=== PATIENT | female | born 1980 | race Caucasian/White ===

== ENCOUNTER 2019-09-15 18:30 | Inpatient (IN) | payer BC ==
[2019-09-15] MEDS ORDERED: METOCLOPRAMIDE 5 MG/ML 2 ML VIAL IVP STA (18:51)
[2019-09-15] MEDS ORDERED: SODIUM CHLORIDE 0.9% 1,000 ML IV STA (18:51)
--- NOTE | 2019-09-15 19:14 | ED ---
General Adult HPI - General Chief complaint: Nausea/Vomiting/Diarrhea Stated complaint: Vomiting 8 wks PG Time Seen by Provider: 09/15/19 18:50 Source: patient Mode of arrival: ambulatory Limitations: no limitations - History of Present Illness Initial comments: Dictation was produced using [employer] dictation software. please excuse any grammatical, word or spelling errors. This patient was cared for during a federal and state declared state of e mergency secondary to Covid 19 Chief Complaint: 39-year-old female presents with nausea vomiting. History of Present Illness: Yudith is a 39-year-old female she presents today with nausea and vomiting. Patient states that she was recently diagnosed with hyperemesis gravidarum. Patient states she is 8 weeks . She does have an [facility]. She states that she did have a ultrasound to confirm intrauterine . She has no abdominal pain. Patient states she is severely nauseous. Patient can barely tolerate any oral intake. She is unable to keep her vitamins down. Patient states she has a mild sore throat. Denies any chest pain or shortness of breath. The ROS documented in this emergency department record has been reviewed and confirmed by me. Those systems with pertinent positive or negative responses have been documented in the HPI. All other systems are other negative and/or noncontributory. PHYSICAL EXAM: General Impression: Alert and oriented x3, not in acute distress HEENT: Normocephalic atraumatic, extra-ocular movements intact, pupils equal and reactive to light bilaterally, dry mucous membranes Cardiovascular: Heart regular rate and rhythm, S1&S2 audible, no murmurs, rubs or gallops Chest: Able to complete full sentences, no retractions, no tachypnea Abdomen: Bowel sounds present, abdomen soft, non-tender, non-distended, no organomegaly Musculoskeletal: Pulses present and equal in all extremities, no peripheral edema Motor: no focal deficits noted Neurological: CN II-XII grossly intact, no focal motor or sensory deficits noted Skin: Intact with no visualized rashes Psych: Normal affect and mood ED course: 39-year-old female presents with nausea and vomiting in . Vital signs upon arrival shows heart rate of 145, rest of vital signs within acceptable limits. Laboratory evaluation obtained. Leukocytosis of 0.9, this could be secondary to versus stress leukocytosis. Metabolic panel shows anion gap acidosis likely secondary to dehydration versus starvation ketoacidosis. Discussed patient case with Dr. Posey who is lubrication technician for patient's primary [facility] Dr. Tinajero, she recommended that patient be admitted to the hospital for IV hydration. Patient still continues to vomit. Considering metabolic acidosis we'll have patient admitted for intravenous fluids. Discussed patient case with Dr. Crystal willing to accept patients care. - Related Data Home Medications Medication Instructions Recorded Confirmed No Known Home Medications 09/15/19 09/15/19 Allergies Allergy/AdvReac Type Severity Reaction Status Date / Time No Known Allergies Allergy Verified 09/15/19 20:13 Review of Systems ROS Statement: Those systems with pertinent positive or pertinent negative responses have been documented in the HPI. ROS Other: All systems not noted in ROS Statement are negative. Past Medical History Past Medical History: No Reported History History of Any Multi-Drug Resistant Organisms: None Reported Past Surgical History: Section Past Psychological History: No Psychological Hx Reported Smoking Status: Never smoker Past Alcohol Use History: None Reported Past Drug Use History: None Reported General Exam Limitations: no limitations Course Vital Signs 09/15/19 09/15/19 18:33 19:58 Temperature 98.1 F 97.8 F Pulse Rate 145 H 105 H Respiratory 20 16 Rate Blood Pressure 135/85 133/81 O2 Sat by Pulse 98 100 Oximetry Medical Decision Making - Lab Data Result diagrams: 09/15/19 19:48 09/15/19 19:48 Lab Results 09/15/19 09/15/19 09/15/19 Range/Units 19:48 19:48 19:48 WBC 12.9 H (3.8-10.6) k/uL RBC 5.49 H (3.80-5.40) m/uL Hgb 14.8 (11.4-16.0) gm/dL Hct 45.3 (34.0-46.0) % MCV 82.5 (80.0-100.0) fL MCH 26.9 (25.0-35.0) pg MCHC 32.6 (31.0-37.0) g/dL RDW 14.2 (11.5-15.5) % Plt Count 228 (150-450) k/uL Neutrophils % 92 % Lymphocytes % 4 % Monocytes % 2 % Eosinophils % 1 % Basophils % 0 % Neutrophils # 11.8 H (1.3-7.7) k/uL Lymphocytes # 0.6 L (1.0-4.8) k/uL Monocytes # 0.3 (0-1.0) k/uL Eosinophils # 0.1 (0-0.7) k/uL Basophils # 0.0 (0-0.2) k/uL Sodium 140 (137-145) mmol/L Potassium 4.2 (3.5-5.1) mmol/L Chloride 105 (98-107) mmol/L Carbon Dioxide 12 L (22-30) mmol/L Anion Gap 23 mmol/L BUN 15 (7-17) mg/dL Creatinine 0.70 (0.52-1.04) mg/dL Est GFR (CKD-EPI)AfAm >90 (>60 ml/min/1.73 sqM) Est GFR (CKD-EPI)NonAf >90 (>60 ml/min/1.73 sqM) Glucose 142 H (74-99) mg/dL Plasma Lactic Acid Jett 1.7 (0.7-2.0) mmol/L Calcium 9.9 (8.4-10.2) mg/dL Ionized Calcium Devan 5.3 (4.5-5.3) mg/dL Magnesium 1.7 (1.6-2.3) mg/dL Total Bilirubin 0.6 (0.2-1.3) mg/dL AST 20 (14-36) U/L ALT 14 (4-34) U/L Alkaline Phosphatase 77 (38-126) U/L Total Protein 8.6 H (6.3-8.2) g/dL Albumin 4.8 (3.5-5.0) g/dL Disposition Clinical Impression: Hyperemesis Disposition: ADMITTED IP TO THIS [facility] Condition: Fair Referrals: None,Stated [Primary Care Provider] - 1-2 days Decision Time: 21:09
[2019-09-15 19:58] LABS: Basophils % (A) 0 %; Eosinophils # (A) 0.1 k/uL (0-0.7); Eosinophils % (A) 1 %; HCT 45.3 % (34.0-46.0); HGB 14.8 gm/dL (11.4-16.0); Lymphocytes # (A) 0.6 k/uL (1.0-4.8); Lymphocytes % (A) 4 %; MCH 26.9 pg (25.0-35.0); MCHC 32.6 g/dL (31.0-37.0); MCV 82.5 fL (80.0-100.0); Mean Platelet Volume 9.9; Monocytes # (A) 0.3 k/uL (0-1.0); Monocytes % (A) 2 %; Neutrophils # (A) 11.8 k/uL (1.3-7.7); Neutrophils % (A) 92 %; Platelet Count 228 k/uL (150-450); RBC 5.49 m/uL (3.80-5.40); RDW 14.2 % (11.5-15.5); WBC 12.9 k/uL (3.8-10.6)
[2019-09-15 20:03] LABS: Ionized Calcium 5.3 mg/dL (4.5-5.3)
[2019-09-15 20:12] LABS: ALT 14 U/L (4-34); AST 20 U/L (14-36); African American GFR (CKD) >90 (>60 ml/min/1.73 sqM); Albumin 4.8 g/dL (3.5-5.0); Alkaline Phosphatase 77 U/L (38-126); Anion Gap 23 mmol/L; Blood Urea Nitrogen 15 mg/dL (7-17); Calcium 9.9 mg/dL (8.4-10.2); Carbon Dioxide 12 mmol/L (22-30); Chloride 105 mmol/L (98-107); Glucose 142 mg/dL (74-99); Magnesium 1.7 mg/dL (1.6-2.3); Non-African American GFR(CKD) >90 (>60 ml/min/1.73 sqM); Potassium 4.2 mmol/L (3.5-5.1); Sodium 140 mmol/L (137-145); Total Bilirubin 0.6 mg/dL (0.2-1.3); Total Protein 8.6 g/dL (6.3-8.2)
[2019-09-15] MEDS ORDERED: ONDANSETRON 4 MG/2 ML VIAL IVP STA (20:49)
[2019-09-15] MEDS ORDERED: NALOXONE 0.4 MG/ML 1 ML VIAL IV PRN (21:09)
[2019-09-15] MEDS ORDERED: ACETAMINOPHEN TAB 325 MG TAB PO PRN (21:09)
[2019-09-15] MEDS: SODIUM CHLORIDE 0.9% 1,000 ML IV SCH (21:28)
[2019-09-16] MEDS: METOCLOPRAMIDE 5 MG/ML 2 ML VIAL IVP PRN ×2 (00:59→07:33)
[2019-09-16] MEDS ORDERED: CALCIUM CARBONATE 500 MG CHEWABLE PO PRN (04:02)
[2019-09-16] MEDS: ONDANSETRON 4 MG/2 ML VIAL IVP PRN ×4 (04:22→23:06)
[2019-09-16 04:25] LABS: Appearance,Urine Clear (Clear); Bilirubin,Urine Negative (Negative); Blood,Urine Negative (Negative); Color,Urine Yellow; Glucose,Urine (UA) Negative (Negative); Granular Casts,Urine 117 /lpf (0); Hyaline Casts,Urine 41 /lpf (0-2); Ketones,Urine 4+ (Negative); Leukocyte Esterase,Urine Negative (Negative); Mucus,Urine Occasional /hpf; Nitrite,Urine Negative (Negative); Protein,Urine 2+ (Negative); RBC,Urine <1 /hpf (0-5); Specific Gravity,Urine 1.027 (1.001-1.035); Squamous Epithelial Cell,Urine <1 /hpf (0-4); WBC,Urine 1 /hpf (0-5)
[2019-09-16] MEDS: SODIUM CHLORIDE 0.9% 1,000 ML IV SCH ×2 (05:42→17:12)
--- NOTE | 2019-09-16 09:40 | P.HPOB ---
History of Present Illness H&P Date: 09/16/19 Chief Complaint: Nausea and vomiting of This is a 39-year-old female 4 para 3 with a last menstrual period of 07/17/2019, estimated gestational age of 8-1/2 weeks, who presented with nausea and vomiting to the point that she was unable to hold anything down for over 24 hours. She stated that she went to [facility] on Thursday and had fluids and blood work and ultrasound done. Ultrasound did confirm a viable intrauterine consistent with her dates. She did go see her CRI[facility] TENDER a Dr. Kristi Hilliard at of [place] on Thursday. She recommended that she try Unisom and vitamin B6. She tried that and was unable to sleep through the night and continued direction all the way through until she came into the hospital. She does complain of soreness in the back of her throat due to the retching. She still feels some gaggy symptoms but has not been vomiting as much since she has been in to the hospital. She feels that the Zofran is working better for her than the Reglan, but it does wear off fairly quickly. She does have a history of hyperemesis with her other pregnancies and did take Zofran with her last . She is aware of the risks and benefits of Zofran. Obstetrical history: G 4 P3. History of 3 sections. Gynecologic history: No history of sexual transmitted diseases. Social history: She is . Review of Systems Constitutional: Denies chills, Denies fever Eyes: denies blurred vision, denies pain Ears, nose, mouth and throat: Reports sore throat Cardiovascular: Denies chest pain, Denies shortness of breath Respiratory: Denies cough Gastrointestinal: Reports nausea, Reports vomiting Genitourinary: Reports , Denies abnormal vaginal bleeding, Denies pelvic pain Past Medical History Past Medical History: No Reported History History of Any Multi-Drug Resistant Organisms: None Reported Past Surgical History: Section (x3) Past Anesthesia/Blood Transfusion Reactions: No Reported Reaction Past Psychological History: No Psychological Hx Reported Smoking Status: Never smoker Past Alcohol Use History: None Reported Past Drug Use History: None Reported Medications and Allergies Home Medications Medication Instructions Recorded Confirmed Type Doxylamine Succinate [Unisom] 12.5 mg PO BID 09/16/19 09/16/19 History Vitamin B6 <Unknown Dose. 1 tab PO TID 09/16/19 09/16/19 History Allergies Allergy/AdvReac Type Severity Reaction Status Date / Time No Known Allergies Allergy Verified 09/15/19 20:13 Exam Osteopathic Statement: *. No significant issues noted on an osteopathic structural exam other than those noted in the History and Physical/Consult. Vital Signs Temp Pulse Pulse Resp BP BP Pulse Ox 09/16/19 05:06 98.1 F 94 24 155/89 99 09/15/19 22:20 98.4 F 96 20 125/78 99 09/15/19 21:32 98.5 F 96 16 111/74 100 09/15/19 19:58 97.8 F 105 H 16 133/81 100 09/15/19 18:33 98.1 F 145 H 20 135/85 98 Intake and Output 09/15/19 09/16/19 09/16/19 22:59 06:59 14:59 Output Total 400 170 Balance -400 -170 Output: Gastric Drainage 70 Urine 400 0 Emesis 100 Other: # Bowel Movements 0 Weight 71.214 kg Well-developed well-nourished female in mild distress due to nausea Abdomen: Soft, nontender, no masses palpated Extremities: Negative Homans Results Result Diagrams: 09/15/19 19:48 09/15/19 19:48 Abnormal Lab Results - Last 24 Hours (Table) 09/15/19 09/15/19 09/15/19 Range/Units 19:48 19:48 23:49 WBC 12.9 H (3.8-10.6) k/uL RBC 5.49 H (3.80-5.40) m/uL Neutrophils # 11.8 H (1.3-7.7) k/uL Lymphocytes # 0.6 L (1.0-4.8) k/uL Carbon Dioxide 12 L (22-30) mmol/L Glucose 142 H (74-99) mg/dL Total Protein 8.6 H (6.3-8.2) g/dL Urine Protein 2+ H (Negative) Urine Ketones 4+ H (Negative) Hyaline Casts 41 H (0-2) /lpf Urine Mucus Occasional H (None) /hpf Assessment and Plan (1) Hyperemesis gravidarum before end of 22 week gestation with electrolyte imbalance Current Visit: Yes Status: Acute Code(s): O21.1 - HYPEREMESIS GRAVIDARUM WITH METABOLIC DISTURBANCE SNOMED Code(s): 20746390 Plan: Admission for IV hydration. We'll continue with Zofran since it seems to be helping her somewhat. Will add Pepcid to help with acid reduction. Will adva nce diet as tolerated. Activity as tolerated. Once she is feeling better, will anticipate she can follow up with her own [facility] T[employer]ER. Dr. Segura will be caring for his patient from this point on through the weekend.
[2019-09-16] MEDS: FAMOTIDINE 20 MG/2 ML VIAL IV SCH ×2 (10:40→20:07)
[2019-09-17] MEDS: SODIUM CHLORIDE 0.9% 1,000 ML IV SCH ×3 (00:35→17:31)
[2019-09-17 06:08] LABS: Potassium 3.5 mmol/L (3.5-5.1)
[2019-09-17] MEDS: ONDANSETRON 4 MG/2 ML VIAL IVP PRN (07:15)
[2019-09-17] MEDS: FAMOTIDINE 20 MG/2 ML VIAL IV SCH ×2 (10:43→20:39)
[2019-09-17] MEDS ORDERED: ONDANSETRON 8 MG in SODIUM CHLORIDE 0.9% 50 ML IVPB ONE (12:05)
--- NOTE | 2019-09-17 12:27 | P.PN ---
Progress Note - Text Progress Note Date: 09/17/19 Mia is seen and evaluated. She continues to have persistent nausea and has been unable to keep anything down over the last 12 hours again. Each time she has even sips of water she throws up. She relates it is been at least a couple days and she had anything to actually 8 and therefore GI and dietitian or consult to. We will change her to Zofran 8 mg every 8 hours if this seems to help better than the 4 mg. But she is not due for a dose until later this afternoon. There is very limited otherwise to try. She failed vitamin B6 and Taxol amine and she also failed Reglan. It is unclear if these were given over enough timeframe to begin to work or not as it appears that she only tried the vitamin B6 and Unisom over 1 night and then had significant nausea and vomiting the next day and stopped taking it. Due to the fact that she had previously failed to medications Zofran was initiated and Dr. Crystal discussed this treatment plan with her. Apparently she relates that her last pregnancies of Zofran worked significantly better and that this the nausea and vomiting is much worse. At this time while she is not vomiting she is spitting up a significant amount of fluid and she did have some bilious emesis earlier. In discussing her symptoms a little farther, she relates that throwing up has been going on for at least a week. She was evaluated by her dewaxer on Thursday of this week and was initially started on Unisom and B6. She tried at that night and the next day she was throwing up basically all day. She called her dewaxer whose office was closed and at that point she was instructed to report to the emergency room via there service. She does not know how much weight she has lost but it seems like at this point is relatively significant. She has not tolerated any food in the last 3 days. She says she had a couple voiced her crackers with peanut butter on but immediately had emesis and this is continued with any liquids as well since . At this time she is predominantly dry heaving she is not had any liquids or food all day and it is unclear whether a change in her Zofran dose will impact this at this time. She is not due for another dose of Zofran for approximately 3 hours I am waiting to add any medications like Phenergan due to risk of prolonged QT interval and arrhythmia when these medications are combined if 8 mg this seemed to help her nausea anymore than the 4 mg will have GI way in on addition of Phenergan with decreasing her Zofran to back to 4 mg. At this time I don't think she necessarily is going to need an NG tube feedings or IV nutrition, however, if this persists and she is unable to keep anything down and she begins to show signs or symptoms of malnutrition she may need to have this done. On physical exam, her vital signs are stable area did she is afebrile. Review of EKG does not show any QT interval prolongation at this time.
[2019-09-17] MEDS: PYRIDOXINE 100 MG/ML 1 ML VIAL IVP SCH (13:22)
[2019-09-17] MEDS: THIAMINE 100 MG/ML 2 ML VIAL IVP SCH (13:23)
[2019-09-17 13:54] VITALS: BMI 23.1
[2019-09-17 14:14] LABS: T4, Free (Free Thyroxine) 1.15 ng/dL (0.78-2.19)
[2019-09-17] MEDS ORDERED: diphenhydrAMINE 50 MG/ML 1 ML VIAL IVP PRN (20:04)
[2019-09-17] MEDS: ONDANSETRON 8 MG in SODIUM CHLORIDE 0.9% 50 ML IVPB SCH (21:12)
--- NOTE | 2019-09-17 22:19 | P.CONS ---
History of Present Illness - Reason for Consult Consult date: 09/17/19 Nausea and vomiting Requesting physician: Cora Crystal - Chief Complaint Nausea and vomiting - History of Present Illness 39-year-old female without any significant medical history except for prior episodes of hyperemesis gravidarum with who presented to the hospital with complaints of intractable nausea and vomiting. The patient reports that she has had significant nausea and vomiting prior to presentation to the hospital. Previously she has required medical treatment for similar symptoms with past pregnancies. She had been tried on Reglan therapy but reports continuing to have significant nausea. 4 hours of intractable vomiting prior to presentation. Currently she has been started on Zofran around the clock as well as vitamin B6. She has been seen by the [facility] service were currently following the patient. She denies any significant abdominal pain but does report some soreness in association with her retching. She reports some blood streaking previously with vomiting. Currently she is seen lying in bed still reporting nausea. Review of Systems REVIEW OF SYSTEMS: CONSTITUTIONAL: Denies any fevers, chills, weight change or fatigue. CARDIOVASCULAR: Denies any chest pain, palpitations high or low blood pressures RESPIRATORY: Denies any shortness of breath, hemoptysis or cough. GENITOURINARY: No dysuria or hematuria. MUSCULOSKELETAL: No weakness reported. SKIN: Denies any new rashes or lesions, jaundice or pallor. PSYCHIATRIC: Denies any depression or anxiety. NEUROLOGY: Denies headache, denies any new focal deficits. EARS/NOSE/THROAT: No recent hearing change, congestion, nasal discharge or sore throat. EYES: No pain in eyes, discharge or change in vision. GASTROINTESTINAL: As per HPI. Past Medical History Past Medical History: No Reported History History of Any Multi-Drug Resistant Organisms: None Reported Past Surgical History: Section (x3) Past Anesthesia/Blood Transfusion Reactions: No Reported Reaction Past Psychological History: No Psychological Hx Reported Smoking Status: Never smoker Past Alcohol Use History: None Reported Past Drug Use History: None Reported Additional History: Past family history: Reviewed with the patient and noncontributory to current medical presentation Medications and Allergies Home Medications Medication Instructions Recorded Confirmed Type Doxylamine Succinate [Unisom] 12.5 mg PO BID 09/16/19 09/16/19 History Vitamin B6 <Unknown Dose. 1 tab PO TID 09/16/19 09/16/19 History Allergies Allergy/AdvReac Type Severity Reaction Status Date / Time No Known Allergies Allergy Verified 09/15/19 20:13 Physical Exam Vitals: Vital Signs Temp Pulse Resp BP Pulse Ox 09/17/19 07:00 97.9 F 87 18 150/88 99 09/17/19 05:56 97.8 F 104 H 20 152/89 98 09/16/19 23:11 148/85 09/16/19 22:10 98.7 F 86 18 152/86 100 09/16/19 13:01 97.9 F 64 16 135/83 99 Intake and Output 09/16/19 09/17/19 09/17/19 22:59 06:59 14:59 Intake Total 240 Output Total 600 600 Balance -360 -600 Intake: Oral 240 Output: Urine 600 600 Other: # Voids 2 On physical examination, patient appears comfortable in no apparent distress. HEAD: Normocephalic, atraumatic. EYES: No scleral icterus. No conjunctival injection. MOUTH: No lesions, tongue midline. NECK: Trachea midline, no gross abnormalities. CHEST: Clear to auscultation with no wheezing or rhonchi appreciated. HEART: Regular rate and rhythm. ABDOMEN: Soft. Bowel sounds are positive. No organomegaly. No guarding or rigidity. EXTREMITIES: No pedal edema. SKIN: No rashes, no jaundice. NEUROLOGIC: Alert and oriented x3. No focal deficits. Results CBC & Chem 7: 09/15/19 19:48 09/17/19 05:26 Labs: Abnormal Lab Results - Last 24 Hours (Table) 09/17/19 Range/Units 05:26 Sodium 136 L (137-145) mmol/L Chloride 111 H (98-107) mmol/L Carbon Dioxide 14 L (22-30) mmol/L Assessment and Plan (1) Hyperemesis gravidarum before end of 22 week gestation with electrolyte imbalance Narrative/Plan: 39-year-old female currently in her first trimester of who presents with intractable nausea and vomiting. Similar symptoms with prior pregnancies. Previously she had responded to Zofran therapy. Currently receiving Zofran a round the clock as well as vitamin B6. She continues to report some nausea. Medical regimen was changed today. Continue to monitor her symptomatically. Current Visit: Yes Status: Acute Code(s): O21.1 - HYPEREMESIS GRAVIDARUM WITH METABOLIC DISTURBANCE SNOMED Code(s): 53284766 Plan: Supportive care Continue IV fluid hydration Okay for diet as tolerated Zofran changed to [id number] by primary team Continue vitamin B6 Benadryl added as needed for breakthrough nausea and Continue to follow symptomatically Thank you for allowing us to participate in the care of the patient
[2019-09-18] MEDS: SODIUM CHLORIDE 0.9% 1,000 ML IV SCH (04:10)
[2019-09-18] MEDS: ONDANSETRON 8 MG in SODIUM CHLORIDE 0.9% 50 ML IVPB SCH (05:11)
--- NOTE | 2019-09-18 06:02 | P.CONS ---
History of Present Illness - Reason for Consult Consult date: 09/18/19 - History of Present Illness The patient is 39-year-old female, at 9 weeks gestation, with no known PMH, who was admitted to the hospital under the OB service for hyperemesis gravidarum with medicine consulted for high blood pressure. Patient was seen on the MedSurg unit. She reported continued nausea and vomiting. She denied headache, visual disturbances, or urinary complaints. She also denied chest pain, shortness of breath, fever, chills, or cough. She reports no previous history of HTN. She also reports no previous hx of eclampsia or pre-eclampsia. Review of Systems Pertinent positives and negatives as discussed in HPI, a complete review of systems was performed and all other systems are negative. Past Medical History Past Medical History: No Reported History History of Any Multi-Drug Resistant Organisms: None Reported Past Surgical History: Section (x3) Past Anesthesia/Blood Transfusion Reactions: No Reported Reaction Past Psychological History: No Psychological Hx Reported Smoking Status: Never smoker Past Alcohol Use History: None Reported Past Drug Use History: None Reported Medications and Allergies Home Medications Medication Instructions Recorded Confirmed Type Doxylamine Succinate [Unisom] 12.5 mg PO BID 09/16/19 09/16/19 History Vitamin B6 <Unknown Dose. 1 tab PO TID 09/16/19 09/16/19 History Allergies Allergy/AdvReac Type Severity Reaction Status Date / Time No Known Allergies Allergy Verified 09/15/19 20:13 Physical Exam Vitals: Vital Signs Temp Pulse Resp BP Pulse Ox 09/17/19 23:45 116 H 158/89 09/17/19 23:25 116 H 168/101 09/17/19 20:30 98.9 F 93 20 157/86 99 09/17/19 14:23 98.7 F 82 16 149/91 99 09/17/19 07:00 97.9 F 87 18 150/88 99 09/17/19 05:56 97.8 F 104 H 20 152/89 98 Intake and Output 09/17/19 09/17/19 09/18/19 14:59 22:59 06:59 Intake Total 540 200 Output Total 2 Balance 540 198 Intake: Oral 540 200 Output: Emesis 2 Other: # Voids 2 1 Weight 71.214 kg General: non toxic, no distress, appears at stated age, normal weight Derm: no unusual rashes/lesions no unusual ecchymoses, warm, dry Head: atraumatic, normocephalic, symmetric Eyes: EOMI, no lid lag, anicteric sclera, pupils equal round reactive to light ENT: Nose and ears atraumatic, no thrush, no pharyngeal erythema Neck: No thyromegaly, no cervical lymphadenopathy, trachea midline, supple Mouth: no lip lesion, mucus membranes moist Cardiovascular: S1S2 reg, no murmur, positive posterior tibial pulse bilateral, no edema, capillary refill less than 2 seconds Lungs: CTA bilateral, no rhonchi, no rales , no accessory muscle use Abdominal: soft, nontender to palpation, no guarding Ext: no gross muscle atrophy, muscle strength 5 out of 5 in all 4 extremities grossly, no contractures, Neuro: CN II-XI grossly intact, light touch intact all 4 extremities, finger to nose within normal limits, Psych: Alert, oriented, appropriate affect Results CBC & Chem 7: 09/15/19 19:48 09/17/19 05:26 Labs: Abnormal Lab Results - Last 24 Hours (Table) 09/17/19 09/17/19 Range/Units 05:26 05:26 Sodium 136 L (137-145) mmol/L Chloride 111 H (98-107) mmol/L Carbon Dioxide 14 L (22-30) mmol/L TSH 0.158 L (0.465-4.680) mIU/L Assessment and Plan Plan: Elevated BP, possibly undiagnosed chronic HTN since occuring in 1st trimester vs stress induced due to persistent vomiting -HTN in routinely treated with oral medications with IV medications not preferred -Will start Labetalol 200 mg PO BID for now 9 weeks gestation -As per OB Hyperemesis gravidarum -Currently on Zofran and B6 -GI following -Monitor electrolytes with daily BMP
[2019-09-18 07:05] LABS: Basophils % (A) 0 %; Eosinophils % (A) 0 %; HCT 35.2 % (34.0-46.0); HGB 12.1 gm/dL (11.4-16.0); Lymphocytes % (A) 10 %; MCH 27.5 pg (25.0-35.0); MCHC 34.2 g/dL (31.0-37.0); MCV 80.3 fL (80.0-100.0); Monocytes # (A) 0.5 k/uL (0-1.0); Monocytes % (A) 5 %; Neutrophils # (A) 8.6 k/uL (1.3-7.7); Neutrophils % (A) 85 %; Platelet Count 210 k/uL (150-450); RBC 4.39 m/uL (3.80-5.40); RDW 14.4 % (11.5-15.5); WBC 10.2 k/uL (3.8-10.6)
[2019-09-18 07:14] LABS: ALT 13 U/L (4-34); AST 19 U/L (14-36); African American GFR (CKD) >90 (>60 ml/min/1.73 sqM); Albumin 3.8 g/dL (3.5-5.0); Alkaline Phosphatase 51 U/L (38-126); Amylase 143 U/L (30-110); Anion Gap 15 mmol/L; Blood Urea Nitrogen 4 mg/dL (7-17); Calcium 8.9 mg/dL (8.4-10.2); Carbon Dioxide 15 mmol/L (22-30); Chloride 105 mmol/L (98-107); Glucose 102 mg/dL (74-99); Non-African American GFR(CKD) >90 (>60 ml/min/1.73 sqM); Phosphorus 2.3 mg/dL (2.5-4.5); Potassium 3.1 mmol/L (3.5-5.1); Sodium 135 mmol/L (137-145); Total Bilirubin 0.4 mg/dL (0.2-1.3); Total Protein 6.9 g/dL (6.3-8.2)
[2019-09-18] MEDS ORDERED: POTASSIUM CHLORIDE 20 MEQ in WATER FOR INJECTION 1 100ML.BAG IVPB STA ×2 (08:13→13:27)
[2019-09-18] MEDS ORDERED: POTASSIUM CHLORIDE ER 20 MEQ TAB.ER PO STA (08:14)
[2019-09-18] MEDS: LABETALOL 200 MG TAB PO SCH ×2 (08:46→21:28)
[2019-09-18] MEDS ORDERED: THIAMINE 100 MG in SODIUM CHLORIDE 0.9% 50 ML IVPB SCH (09:00)
[2019-09-18] MEDS ORDERED: METOCLOPRAMIDE 5 MG/ML 2 ML VIAL IVP STA ×2 (09:20→13:25)
--- NOTE | 2019-09-18 09:39 | P.PN ---
Subjective Progress Note Date: 09/18/19 Principal diagnosis: nausea and vomiting Patient is a 39-year-old female at 9 weeks gestational G4, P3 with no past medical history who has been hospitalized since 09/15/19 secondary to persistent nausea and vomiting. Initially on presentation her vital signs were within normal limits and she was not hypertensive. Since being hospitalized she has had persistent nausea and vomiting. She has failed B-6, and escalating doses of Zofran. We were consulted secondary to elevated blood pressures and labetalol was started. Patient was also started on thiamine injections first given on 09/17/19. Review of morning blood work on 09/18/19 shows worsening hypokalemia and patient was ordered IV replacement, she also was noted to have acidosis with a carbon dioxide of 15 associated with urinalysis that showed 4+ ketones which was obtained on 09/15/2019. She is also noted to have increasing lipase of 705 ordering on pancreatitis. Patient seen and examined at bedside. Her increased dosing of Zofran has not helped at all. She is still having persistent dry heaving. In fact I'm in the room for less than 5 minutes she has 3 episodes of dry heaving. She is feeling very fatigued. She is asking for help in stating she cannot tolerate this anymore. She is crying and upset. She also did not tolerate a trial of IV Benadryl overnight and had heart palpitations and fluttering and does not want to try this medication again. We discussed risks and benefits of Reglan therapy including development of extraparametal symptoms. We also discussed that should not be provided in conjunction with Zofran as it can potentially increase the QTc interval. Objective - Vital Signs Vital signs: Vital Signs Temp 98.4 F 09/18/19 09:09 Pulse 103 H 09/18/19 04:30 Resp 20 09/18/19 04:30 BP 149/89 09/18/19 04:30 Pulse Ox 98 09/18/19 04:30 Intake & Output 09/17/19 09/18/19 09/18/19 18:59 06:59 18:59 Intake Total 540 300 Output Total 2 Balance 540 298 Weight 71.214 kg Intake: Oral 540 300 Output: Emesis 2 Other: # Voids 2 5 - Exam General: Ill-appearing, distress, appears at stated age Derm: warm, dry Head: atraumatic, normocephalic, symmetric Eyes: EOMI, no lid lag, anicteric sclera Mouth: no lip lesion, mucus membranes moist Neuro: CN II-XI grossly intact, no focal neuro deficits Psych: Alert, oriented, upset and crying - Labs CBC & Chem 7: 09/18/19 06:09 09/18/19 06:09 Labs: Abnormal Lab Results - Last 24 Hours (Table) 09/17/19 09/18/19 09/18/19 Range/Units 05:26 06:09 06:09 Neutrophils # 8.6 H (1.3-7.7) k/uL Sodium 135 L (137-145) mmol/L Potassium 3.1 L (3.5-5.1) mmol/L Carbon Dioxide 15 L (22-30) mmol/L BUN 4 L (7-17) mg/dL Creatinine 0.51 L (0.52-1.04) mg/dL Glucose 102 H (74-99) mg/dL Phosphorus 2.3 L (2.5-4.5) mg/dL Amylase 143 H (30-110) U/L Lipase 705 H (23-300) U/L TSH 0.158 L (0.465-4.680) mIU/L Assessment and Plan Assessment: Probable starvation ketosis associated with hypokalemia secondary to hyperemesis gravidarum -Review of laboratory analysis shows persistent acidosis with morning CO2 of 15, review of urinalysis obtained earlier in the hospital stay shows 4+ ketones. Patient reporting that she has had no oral intake over the last several days. She has already been started on thiamine and I will switch to dextrose containing fluids to help with glucose utilisation. - IV replacement of potassium - check magnesium - continue thiamine - Patient has failed escalating doses of Zofran and benadryl therapy azeb with B 6 supplementation, she is asking for further medication management and is upset, crying and stating that she need help. We discussed benefits and risks of reglan and will try one dose of IV reglan if this relieves her symptoms could consider switching to oral reglan if OB/ RECORDS MANAGEMENT SPECIALIST in Agreement. She is 4 hours from her last dose of IV zofran and this has been discontinued to avoid 2 QT prolonging agents. At this time she is refusing all oral medications. - GI rec HTN - Suspect this is related to persistent N/V as normotensive on admission but has been started on oral labetaolol, no indication for IV medications at this point in time directed as BP management. - follow BP Elevated lipase - suspect secondary to persistent vomiting - IVF - supportive care Thank you for allowing us to participate in the care of this pleasant patient. Do not hesitate to contact us with questions. Someone can be reached from the [facility] hospitalist group all hours of the day at [phone] or via [employer].
[2019-09-18] MEDS: THIAMINE 100 MG/ML 2 ML VIAL IVP SCH (09:58)
[2019-09-18] MEDS: FAMOTIDINE 20 MG/2 ML VIAL IV SCH ×2 (10:18→21:28)
[2019-09-18] MEDS: PYRIDOXINE 100 MG/ML 1 ML VIAL IVP SCH (10:56)
[2019-09-18] MEDS: DEXTROSE 5% IN WATER 1,000 ML with POTASSIUM CHLORIDE 40 MEQ IV SCH ×2 (11:31→17:50)
--- NOTE | 2019-09-18 13:32 | P.PN ---
Progress Note - Text Progress Note Date: 09/18/19 Mia is seen and evaluated today. Overall she honestly looks a little better today than yesterday. When I was seeing her she was not dry heaving for the first time in 2 days and she was relatively comfortable laying back in bed. She continues to try fluids even in the face of our recommendation to be essentially nothing by mouth which was advised by both myself and medicine. In reviewing her labs it is noted that her TSH is low but she does have a normal free T4 indicating likely due to the hyperemesis potentially due to increased beta hCG. She also has elevated amylase and lipase but this is also likely due to increase in nausea and vomiting much less likely pancreatitis as she has no fevers or back or abdominal pain. We are waiting for a urine sample today to check ketones and verify that she is responding to the hydration. I did speak with internal medicine and we have compared plans. Zofran was discontinued due to ineffectiveness and Reglan has been restarted. She is already getting on vitamin B6. Consideration for addition of Phenergan or Compazine or doxylamine has been made but will see if once we increased dose of Reglan we don't have an adequate response. If she begins to improve symptomatically we'll likely add more dietary changes. Blood pressures remained consistent and she is not receiving blood pressure medication at this time. She did have one elevation in blood pressure last night of 160/100 for which antral medicine was consult with her originally. It is noted by the patient and from nursing last night that following her IV Benadryl she had a bounding heart and some tachycardia and did not receive any somnolent affect from the medication and it has been discontinued. She did not have a similar episode when she tried diclegis so doxylamine likely will not cause a similar effect. On physical exam otherwise heart regular, lungs clear, extremities without pain. She is ambulating some although consideration if she continues to be bedridden for at least SCDs needs to be made. There is no standard recommendation for more aggressive DVT risk management. Abdomen is otherwise soft. Assessment intrauterine at 9 weeks with hyperemesis gravidarum and hypokalemia (replaced) Plan continue Reglan for now with possible addition of Phenergan Should her nausea and vomiting did not improve over the next 24 hours, strong consideration for IV steroids will need to be considered. Dr. Crystal will again be managing her care starting tomorrow
[2019-09-18 14:59] LABS: Appearance,Urine Clear (Clear); Bacteria,Urine Rare /hpf; Bilirubin,Urine Negative (Negative); Blood,Urine Negative (Negative); Color,Urine Light Yellow; Glucose,Urine (UA) Negative (Negative); Hyaline Casts,Urine 6 /lpf (0-2); Ketones,Urine 4+ (Negative); Leukocyte Esterase,Urine Negative (Negative); Mucus,Urine Occasional /hpf; Nitrite,Urine Negative (Negative); Protein,Urine 1+ (Negative); RBC,Urine 1 /hpf (0-5); Specific Gravity,Urine 1.016 (1.001-1.035); Squamous Epithelial Cell,Urine 1 /hpf (0-4); Urobilinogen,Urine <2.0 mg/dL (<2.0); WBC,Urine 1 /hpf (0-5)
--- NOTE | 2019-09-18 19:14 | P.PN ---
Subjective Progress Note Date: 09/18/19 Principal diagnosis: Hyperemesis gravidarum Patient seen sitting in bed today is still reporting nausea but less dry heaving reported. Objective - Vital Signs Vital signs: Vital Signs Temp 98.4 F 09/18/19 09:09 Pulse 103 H 09/18/19 04:30 Resp 20 09/18/19 04:30 BP 149/89 09/18/19 04:30 Pulse Ox 98 09/18/19 04:30 Intake & Output 09/17/19 09/18/19 09/18/19 18:59 06:59 18:59 Intake Total 540 300 Output Total 2 Balance 540 298 Weight 71.214 kg Intake: Oral 540 300 Output: Emesis 2 Other: # Voids 2 5 - Exam On physical examination, patient appears comfortable in no apparent distress. HEAD: Normocephalic, atraumatic. EYES: No scleral icterus. No conjunctival injection. MOUTH: No lesions, tongue midline. NECK: Trachea midline, no gross abnormalities. ABDOMEN: Soft, obese. Bowel sounds are positive. No organomegaly. No guarding or rigidity. EXTREMITIES: No pedal edema. SKIN: No rashes, no jaundice. NEUROLOGIC: Alert and oriented x3. No focal deficits. - Labs CBC & Chem 7: 09/18/19 06:09 09/18/19 06:09 Labs: Abnormal Lab Results - Last 24 Hours (Table) 09/17/19 09/18/19 09/18/19 Range/Units 05:26 06:09 06:09 Neutrophils # 8.6 H (1.3-7.7) k/uL Sodium 135 L (137-145) mmol/L Potassium 3.1 L (3.5-5.1) mmol/L Carbon Dioxide 15 L (22-30) mmol/L BUN 4 L (7-17) mg/dL Creatinine 0.51 L (0.52-1.04) mg/dL Glucose 102 H (74-99) mg/dL Phosphorus 2.3 L (2.5-4.5) mg/dL Amylase 143 H (30-110) U/L Lipase 705 H (23-300) U/L TSH 0.158 L (0.465-4.680) mIU/L Assessment and Plan (1) Hyperemesis gravidarum before end of 22 week gestation with electrolyte imbalance Narrative/Plan: 39-year-old female currently in her first trimester of who presents with intractable nausea and vomiting. Similar symptoms with prior pregnancies. Previously she had responded to Zofran therapy. Currently Zofran has been discontinued and replaced with the Reglan ATC as well as vitamin B6. She continues to report some nausea. Medical regimen was changed today. Continue to monitor her symptomatically. Current Visit: Yes Status: Acute Code(s): O21.1 - HYPEREMESIS GRAVIDARUM WITH METABOLIC DISTURBANCE SNOMED Code(s): 82143395 Plan: Supportive care Continue IV fluid hydration Okay for diet as tolerated Zofran discontinued today Reglan [id number] initiated Continue vitamin B6 Benadryl added as needed for breakthrough nausea although patient reports palpitations with the medicine yesterday Continue to follow symptomatically Thank you for allowing us to participate in the care of the patient
[2019-09-18] MEDS: METOCLOPRAMIDE 10 MG TAB PO SCH (21:28)
[2019-09-19] MEDS: DEXTROSE 5% IN WATER 1,000 ML with POTASSIUM CHLORIDE 40 MEQ IV SCH ×3 (02:50→19:55)
[2019-09-19] MEDS: METOCLOPRAMIDE 10 MG TAB PO SCH (05:16)
[2019-09-19] MEDS: FAMOTIDINE 20 MG/2 ML VIAL IV SCH ×2 (08:20→20:39)
[2019-09-19] MEDS: LABETALOL 200 MG TAB PO SCH ×2 (08:20→20:39)
[2019-09-19] MEDS: PYRIDOXINE 100 MG/ML 1 ML VIAL IVP SCH (08:22)
[2019-09-19] MEDS: THIAMINE 100 MG/ML 2 ML VIAL IVP SCH (08:22)
[2019-09-19] MEDS ORDERED: PROMETHAZINE INJ 25 MG/ML 1 ML VIAL IM PRN (08:41)
--- NOTE | 2019-09-19 08:51 | P.PN ---
Progress Note - Text Progress Note Date: 09/19/19 Patient is seen today. She is upset and crying and states she is still unable to hold anything down. She has been spitting up all night with dry heaves. She states she is very weak and needed help to get back to her bed from the bathroom earlier. She doesn't feel that the Reglan is helping her anymore. She complains of epigastric pain constantly due to the nausea and vomiting. She has not had any lab work done since her potassium was replaced yesterday. I will reorder labs today. I will try switching from Reglan to Phenergan to see if this works any better for her. I will also having a banana bag to see if this helps with her vitamin supplementation better. Appreciate any medicine and GI input. I am concerned that if she is still unable to hold anything down, that she may need some TPN in the near future. We will continue to monitor. Dr. Segura will be covering tomorrow and Thursday.
[2019-09-19 09:40] LABS: ALT 23 U/L (4-34); AST 25 U/L (14-36); African American GFR (CKD) >90 (>60 ml/min/1.73 sqM); Albumin 3.5 g/dL (3.5-5.0); Alkaline Phosphatase 53 U/L (38-126); Amylase 153 U/L (30-110); Anion Gap 12 mmol/L; Blood Urea Nitrogen 4 mg/dL (7-17); Carbon Dioxide 18 mmol/L (22-30); Chloride 100 mmol/L (98-107); Glucose 159 mg/dL (74-99); Non-African American GFR(CKD) >90 (>60 ml/min/1.73 sqM); Sodium 130 mmol/L (137-145); Total Bilirubin 0.4 mg/dL (0.2-1.3); Total Protein 6.6 g/dL (6.3-8.2)
[2019-09-19 10:04] LABS: Potassium 2.7 mmol/L (3.5-5.1)
[2019-09-19] MEDS: 1: MVI, ADULT NO.4 WITH VIT K 10 ML, THIAMINE 100 MG, FOLIC ACID 1 MG in SODIUM CHLORIDE IV SCH ×8 (10:22→20:22)
[2019-09-19] MEDS ORDERED: SODIUM CHLORIDE 0.9% IVPB SCH (11:15)
[2019-09-19] MEDS ORDERED: METHYLPREDNISOLONE SOD SUCC IVPB SCH (11:15)
[2019-09-19] MEDS: methylPREDNISolone SOD SUCCI 40 MG/ML 1 ML VIAL IVP SCH ×2 (11:46→20:40)
[2019-09-19] MEDS: POTASSIUM CHLORIDE 20 MEQ in WATER FOR INJECTION 1 100ML.BAG IVPB SCH ×4 (11:47→19:54)
--- NOTE | 2019-09-19 14:43 | PN ---
PROGRESS NOTE DATE OF DICTATION: 09/19/2019 The patient is a 39-year-old, pleasant, white female who is presently 9 weeks , admitted to the hospital with hyperemesis gravidarum. She has been having intense nausea and vomiting for the last few days duration. Presently on IV Pepcid, Zofran, and Phenergan around the clock with no help. She was seen by Dr. Crystal this morning who started her on IV Solu-Medrol 16 mg q.8 hours. The patient is resting in bed, intensely nauseated but did not have any episodes of emesis today. She still has some epigastric discomfort but she believes that it is gradually improving. PHYSICAL EXAMINATION: VITAL SIGNS: Stable. Blood pressure is 143/82, pulse is 84, temperature 98.3. HEENT: Unremarkable. Conjunctivae pink. Sclerae anicteric. Oral cavity, no lesions. NECK: No JVD or lymph node enlargement. CHEST: Clear to auscultation. HEART: Regular rate and rhythm. ABDOMEN: Soft. Bowel sounds are positive. No organomegaly. EXTREMITIES: No pedal edema. NEUROLOGIC: She is alert and oriented x3. No focal deficits. LABS: From today, CBC not done. Sodium is 130, potassium 2.7, chloride 100, CO2 18, BUN 4, creatinine 0.39. Amylase is slightly elevated at 153 and lipase is 883. IMPRESSION: 1. Hyperemesis gravidarum, presently 9 weeks . She is receiving IV Phenergan and Zofran with no help. She was started on IV Solu-Medrol 16 mg q.[address] Crystal this morning. 2. Mild elevation of amylase and lipase, could be nonspecific but possibility of acute pancreatitis cannot be excluded. We will obtain ultrasound of the abdomen to rule out any gallstones and evaluate the pancreas. 3. Epigastric pain, possibly related to gastroesophageal reflux disease/mild pancreatitis. RECOMMENDATIONS: 1. Continue with symptomatic and supportive care. 2. Continue with IV Solu-Medrol as per Dr. Crystal. 3. We will obtain ultrasound of the gallbladder and the pancreas to evaluate further. 4. Continue with IV Pepcid. 5. Clear liquid diet and we will follow with you closely. Thank you for this consultation. MMODL / IJN: [id number] /
--- NOTE | 2019-09-19 14:47 | US ---
EXAMINATION TYPE: US abdomen limited DATE OF EXAM: 09/19/2019 COMPARISON: NONE CLINICAL HISTORY: pancreatitis, r/o gallstones. nausea and vomiting, pancreatitis EXAM MEASUREMENTS: Liver Length: 14.7 cm Gallbladder Wall: 0.3 cm CBD: 0.3 cm Right Kidney: 11.4 x 3.8 x 4.3 cm Technical limitations due to large amount of overlying bowel content Pancreas: visualized portions appear wnl Liver: appears wnl Gallbladder: multiple large stones Evidence for sonographic Hendrix's sign: yes CBD: limited evaluation Right Kidney: wnl IMPRESSION: 1. No suspicious changes to suggest acute pancreatitis by ultrasound. 2. Cholelithiasis. Borderline wall thickening may be present.
[2019-09-19] MEDS ORDERED: MAGNESIUM SULFATE-D5W PMX 1 GM in DEXTROSE/WATER 1 100ML.BAG IVPB ONE (15:00)
--- NOTE | 2019-09-19 19:11 | P.PN ---
Subjective Progress Note Date: 09/19/19 (delayed charting seen at 1115am) Principal diagnosis: nausea and vomiting Patient is a 39-year-old female at 9 weeks gestational G4, P3 with no past medical history who has been hospitalized since 09/15/19 secondary to persistent nausea and vomiting. Initially on presentation her vital signs were within normal limits and she was not hypertensive. Since being hospitalized she has had persistent nausea and vomiting. She has failed B-6, and escalating doses of Zofran. We were consulted secondary to elevated blood pressures and labetalol was started. Patient was also started on thiamine injections first given on 09/17/19. Review of morning blood work on 09/18/19 shows worsening hypokalemia and patient was ordered IV replacement, she also was noted to have acidosis with a carbon dioxide of 15 associated with urinalysis that showed 4+ ketones which was obtained on 09/15/2019. She is also noted to have increasing lipase of 705 concerning for pancreatitis. She was then trialed on reglan patient stated only minimal improvement in symptoms. Clear liquid diet maintained Patient seen and examined at bedside. She reports no significant improvement in her nausea and vomiting. She appears much more comfortable than yesterday and is not having any active dry heaving and vomiting when I'm in the room. Per nursing he also felt she was slightly improved overnight. We discussed the risks and benefits of starting steroids and Phenergan during the early stages of and that we'll try to help with her nausea and vomiting. We also discussed the need for continued potassium replacement. Objective - Vital Signs Vital signs: Vital Signs Temp 99.2 F 09/19/19 14:55 Pulse 86 09/19/19 14:55 Resp 15 09/19/19 14:55 BP 145/83 09/19/19 14:55 Pulse Ox 98 09/19/19 14:55 Intake & Output 09/19/19 09/19/19 09/20/19 06:59 18:59 06:59 Intake Total 300 Balance 300 Intake: Oral 300 Other: # Voids 2 1 - Exam General: non toxic, mild distress, appears at stated age Derm: warm, dry Head: atraumatic, normocephalic, symmetric Eyes: EOMI, no lid lag, anicteric sclera Mouth: no lip lesion, mucus membranes dry Cardiovascular: S1S2 reg, no murmur, positive posterior tibial pulse bilateral, Lungs: CTA bilateral, no rhonchi, no rales , no accessory muscle use Abdominal: soft, +tender to palpation epigastric, no guarding, no appreciable organomegaly Ext: no gross muscle atrophy, no edema, no contractures Neuro: CN II-XI grossly intact, no focal neuro deficits Psych: Alert, oriented, appropriate affect - Labs CBC & Chem 7: 09/18/19 06:09 09/19/19 09:10 Labs: Abnormal Lab Results - Last 24 Hours (Table) 09/19/19 Range/Units 09:10 Sodium 130 L (137-145) mmol/L Potassium 2.7 L* (3.5-5.1) mmol/L Carbon Dioxide 18 L (22-30) mmol/L BUN 4 L (7-17) mg/dL Creatinine 0.39 L (0.52-1.04) mg/dL Glucose 159 H (74-99) mg/dL Amylase 153 H (30-110) U/L Lipase 883 H (23-300) U/L Assessment and Plan Assessment: Probable starvation ketosis associated with profound hypokalemia secondary to hyperemesis gravidarum - Improving with glucose containing fluid, D/W Dr. Crystal and will have banana bag once daily and continued IV fluids. She had a suboptimal response to reglan and has been ordered Phenergan IM. We also discussed starting steroids for her hyperemesis, this has been okayed by Dr. Crystal methylprednisalone order placed. - IV replacement of potassium - aggressive K+ replacement, Magnesium 1 gram, Repeat labs in AM - GI recs HTN - Suspect this is related to persistent N/V as normotensive on admission but has been started on oral labetaolol, no indication for IV medications at this point in time directed as BP management. - follow BP Elevated lipase - suspect secondary to persistent vomiting - Abd US without signs of pancreatitis - supportive care Thank you for allowing us to participate in the care of this pleasant patient. Do not hesitate to contact us with questions. Someone can be reached from the [facility] hospitalist group all hours of the day at [phone] or via [employer].
[2019-09-20 01:03] LABS: African American GFR (CKD) >90 (>60 ml/min/1.73 sqM); Anion Gap 9 mmol/L; Blood Urea Nitrogen 5 mg/dL (7-17); Carbon Dioxide 19 mmol/L (22-30); Chloride 104 mmol/L (98-107); Glucose 119 mg/dL (74-99); Non-African American GFR(CKD) >90 (>60 ml/min/1.73 sqM); Potassium 3.9 mmol/L (3.5-5.1); Sodium 132 mmol/L (137-145)
[2019-09-20] MEDS: DEXTROSE 5% IN WATER 1,000 ML with POTASSIUM CHLORIDE 40 MEQ IV SCH ×3 (01:50→16:28)
[2019-09-20] MEDS: methylPREDNISolone SOD SUCCI 40 MG/ML 1 ML VIAL IVP SCH ×3 (02:25→20:51)
[2019-09-20] MEDS: 1: MVI, ADULT NO.4 WITH VIT K 10 ML, THIAMINE 100 MG, FOLIC ACID 1 MG in SODIUM CHLORIDE IV SCH ×8 (05:11→16:27)
[2019-09-20 07:53] LABS: African American GFR (CKD) >90 (>60 ml/min/1.73 sqM); Anion Gap 11 mmol/L; Blood Urea Nitrogen 7 mg/dL (7-17); Calcium 8.9 mg/dL (8.4-10.2); Carbon Dioxide 19 mmol/L (22-30); Chloride 104 mmol/L (98-107); Glucose 117 mg/dL (74-99); Magnesium 2.1 mg/dL (1.6-2.3); Non-African American GFR(CKD) >90 (>60 ml/min/1.73 sqM); Potassium 3.9 mmol/L (3.5-5.1); Sodium 134 mmol/L (137-145)
[2019-09-20] MEDS: FAMOTIDINE 20 MG/2 ML VIAL IV SCH ×2 (08:22→20:51)
[2019-09-20] MEDS: LABETALOL 200 MG TAB PO SCH ×2 (08:22→20:51)
[2019-09-20] MEDS: PYRIDOXINE 100 MG/ML 1 ML VIAL IVP SCH (08:25)
--- NOTE | 2019-09-20 11:49 | P.PN ---
Progress Note - Text Progress Note Date: 09/20/19 Mia is seen and evaluated. She looks significantly improved over yesterday. She relates that she has not thrown up today. She does state that last night she was throwing up did have some bile in her vomit but this has resolved since last night. The initiation of steroids and/or Phenergan has made a dramatic difference in her current both mood and symptomatology. She is smiling and feels much better she is tolerating liquids including and sure. We'll plan to either advance diet tonight to a more full liquid versus even potentially very cautious emesis diet with regular food. I did relay her cholelithiasis and did discuss with her risks of fat containing foods including milks/Myles/Thursday greasy foods and related that this may cause for a significant amount of pain and other symptomatology. I cannot say for sure if this is any real effect on her hyperemesis as it seems more likely hyperemesis was all that was causing her nausea and vomiting since she has not had any epigastric or right upper quadrant pain throughout this process. Hopefully she will be able to continue with improvement and potentially discharged home tomorrow or depending on how she tolerates her diet and decisions moving forward with regards that will include discharge medications potentially including Reglan and some type of potentially steroid oral medication until she can be reevaluated by her primary uniform attendant. All other questions are answered for her at this time.
[2019-09-20] MEDS ORDERED: PROMETHAZINE 25 MG TAB PO PRN (14:14)
--- NOTE | 2019-09-20 14:22 | P.PN ---
Subjective Progress Note Date: 09/20/19 Principal diagnosis: nausea and vomiting Patient is a 39-year-old female at 9 weeks gestational G4, P3 with no past medical history who has been hospitalized since 09/15/19 secondary to persistent nausea and vomiting. Initially on presentation her vital signs were within normal limits and she was not hypertensive. Since being hospitalized she has had persistent nausea and vomiting. She has failed B-6, and escalating doses of Zofran. We were consulted secondary to elevated blood pressures and labetalol was started. Patient was also started on thiamine injections first given on 09/17/19. Review of morning blood work on 09/18/19 shows worsening hypokalemia and patient was ordered IV replacement, she also was noted to have acidosis with a carbon dioxide of 15 associated with urinalysis that showed 4+ ketones which was obtained on 09/15/2019. She is also noted to have increasing lipase of 705 concerning for pancreatitis. She was then trialed on reglan patient stated only minimal improvement in symptoms. Clear liquid diet maintained. On 09/18 she complained of continued nausea and vomiting. She was switched to Phenergan in the Reglan was stopped. She was also was started on steroids after discussion with FLEET ADMINISTRATOR. Patient seen and examined at bedside. Patient's no longer vomiting. Has tolerated some sips of clear in nature. No abdominal pain but feeling sore. Objective - Vital Signs Vital signs: Vital Signs Temp 98.3 F 09/20/19 07:00 Pulse 80 09/20/19 07:00 Resp 15 09/20/19 07:00 BP 126/75 09/20/19 07:00 Pulse Ox 96 09/20/19 07:00 Intake & Output 09/19/19 09/20/19 09/20/19 18:59 06:59 18:59 Intake Total 1111.2 Balance 1111.2 Intake: Intake, IV Titration 1011.2 Amount Mvi, Adult No.4 with Vit 1011.2 K 10 ml Thiamine 100 mg Folic Acid 1 mg In Sodium Chloride 0.9% 1,000 ml @ 100 mls/hr IV .BY DURATION SLAVA Rx#: [id number] Oral 100 Other: # Voids 1 1 1 - Exam General: non toxic, no distress, appears at stated age Derm: warm, dry Head: atraumatic, normocephalic, symmetric Eyes: EOMI, no lid lag, anicteric sclera Mouth: no lip lesion, mucus membranes moist Cardiovascular: S1S2 reg, no murmur, positive posterior tibial pulse bilateral, Lungs: CTA bilateral, no rhonchi, no rales , no accessory muscle use Abdominal: soft, nontender to palpation epigastric, no guarding, no appreciable organomegaly Ext: no gross muscle atrophy, no edema, no contractures Neuro: CN II-XI grossly intact, no focal neuro deficits Psych: Alert, oriented, appropriate affect - Labs CBC & Chem 7: 09/18/19 06:09 09/20/19 07:12 Labs: Abnormal Lab Results - Last 24 Hours (Table) 09/20/19 09/20/19 Range/Units 00:24 07:12 Sodium 132 L 134 L (137-145) mmol/L Carbon Dioxide 19 L 19 L (22-30) mmol/L BUN 5 L (7-17) mg/dL Creatinine 0.43 L 0.51 L (0.52-1.04) mg/dL Glucose 119 H 117 H (74-99) mg/dL Assessment and Plan Assessment: Probable starvation ketosis associated with profound secondary to hyperemesis gravidarum - Improving with glucose containing fluid also o MVI - Continued clear liquid intake - if no vomiting after lunch transition from IM phenergan to oral phenergan - Stop IV steroids in AM and considering prolonged herb of until seen by primary OB. - GI recs HTN - Suspect this is related to persistent N/V as normotensive on admission but has been started on oral labetaolol, no indication for IV medications at this point in time directed as BP management. - follow BP Elevated lipase - suspect secondary to persistent vomiting - Abd US without signs of pancreatitis - supportive care Cholelithiasis - outpatient evaluation - low fat diet once tolerating hypokalemia, resolved
--- NOTE | 2019-09-20 18:32 | PN ---
PROGRESS NOTE DATE OF DICTATION: 09/20/2019 This patient is a 39-year-old pleasant white female, presently 9 weeks , admitted to the hospital with hyperemesis gravidarum. She is feeling better today; had no further episodes of emesis. No abdominal pain. She still has some nausea. She was able to drink some Ensure this morning and feels better. She is receiving IV Solu- Medrol 16 mg every 8 hours as well as antiemetics. PHYSICAL EXAMINATION: She appears comfortable. No apparent distress Vital signs are stable. Blood pressure is 113/73, pulse rate 80, temperature 98.8. HEENT examination unremarkable. Conjunctivae pink. Sclerae anicteric. Oral cavity no lesions. NECK: No JVD or lymph node enlargement. CHEST: Clear to auscultation. HEART: Regular rate and rhythm. ABDOMEN: Soft. Bowel sounds are positive. No organomegaly. EXTREMITIES: No pedal edema. SKIN: No rashes. NEUROLOGIC: She is alert and oriented x3. No focal deficits. LABS: No labs available. IMPRESSION: Hyperemesis gravidarum, presently 9 weeks , on IV Solu-Medrol 16 mg q.8 hours, and it seems like she is symptomatically improving. Also remains on antiemetics. On a soft diet, tolerating well. Mild elevation of amylase and lipase appears nonspecific versus mild pancreatitis. She did have an abdominal ultrasound yesterday that showed some cholelithiasis. No evidence of pancreatitis noted. RECOMMENDATIONS: 1. Continue with antiemetics. 2. Continue with present medications. 3. Small frequent meals. 4. Advance diet gradually as tolerated. 5. Discussed with the patient ultrasound of the abdomen results, but at this time I do not think cholelithiasis is contributing to any of her problems. Will watch her closely. Thank you for this consultation. MMODL / IJN: [id number] /
[2019-09-20] MEDS: ONDANSETRON 4 MG/2 ML VIAL IVP PRN (20:51)
[2019-09-21] MEDS: 1: MVI, ADULT NO.4 WITH VIT K 10 ML, THIAMINE 100 MG, FOLIC ACID 1 MG in SODIUM CHLORIDE IV SCH ×22 (01:06→10:42)
[2019-09-21] MEDS: DEXTROSE 5% IN WATER 1,000 ML with POTASSIUM CHLORIDE 40 MEQ IV SCH (03:55)
[2019-09-21] MEDS: methylPREDNISolone SOD SUCCI 40 MG/ML 1 ML VIAL IVP SCH ×2 (03:56→12:17)
[2019-09-21 05:05] VITALS: RESP 18
[2019-09-21] MEDS: LABETALOL 100 MG TAB PO SCH ×2 (08:50→20:49)
[2019-09-21] MEDS: FAMOTIDINE 20 MG TAB PO SCH ×2 (08:50→20:48)
[2019-09-21] MEDS: PYRIDOXINE 100 MG/ML 1 ML VIAL IVP SCH (08:51)
--- NOTE | 2019-09-21 08:56 | P.PN ---
Progress Note - Text Progress Note Date: 09/21/19 Mia is doing very well this morning. She is not thrown up almost 24 hours and she feels significantly improved. We'll plan to continue the IV steroids today with expectation for warp changer to this oral tomorrow and hopefully can discharged home either tomorrow or Thursday. All other questions are answered for her and again she looks significantly improved today. Please see medicine and GI consults further information.
--- NOTE | 2019-09-21 18:27 | P.PN ---
Subjective Progress Note Date: 09/21/19 (delayed charting seen at 0945) Principal diagnosis: nausea and vomiting Patient is a 39-year-old female at 9 weeks gestational G4, P3 with no past medical history who has been hospitalized since 09/15/19 secondary to persistent nausea and vomiting. Initially on presentation her vital signs were within normal limits and she was not hypertensive. Since being hospitalized she has had persistent nausea and vomiting. She has failed B-6, and escalating doses of Zofran. We were consulted secondary to elevated blood pressures and labetalol was started. Patient was also started on thiamine injections first given on 09/17/19. Review of morning blood work on 09/18/19 shows worsening hypokalemia and patient was ordered IV replacement, she also was noted to have acidosis with a carbon dioxide of 15 associated with urinalysis that showed 4+ ketones which was obtained on 09/15/2019. She is also noted to have increasing lipase of 705 concerning for pancreatitis. She was then trialed on reglan patient stated only minimal improvement in symptoms. Clear liquid diet maintained. On 09/18 she complained of continued nausea and vomiting. She was switched to Phenergan in the Reglan was stopped. She was also was started on steroids after discussion with [employer] SEWER. Patient seen and examined at bedside. Patient's no longer vomiting, nausea better, feeling much better today. Was able to eat a pancake and 6 grapes for breakfast. Objective - Vital Signs Vital signs: Vital Signs Temp 98.5 F 09/21/19 12:05 Pulse 74 09/21/19 12:05 Resp 18 09/21/19 12:05 BP 120/70 09/21/19 12:05 Pulse Ox 96 09/21/19 12:05 Intake & Output 09/20/19 09/21/19 09/21/19 18:59 06:59 18:59 Intake Total 1011.2 1150 950 Balance 1011.2 1150 950 Weight 71.214 kg Intake: Intake, IV Titration 1011.2 1150 950 Amount Mvi, Adult No.4 with Vit 1011.2 K 10 ml Thiamine 100 mg Folic Acid 1 mg In Sodium Chloride 0.9% 1,000 ml @ 100 mls/hr IV .BY DURATION [facility] Rx#: [id number] Mvi, Adult No.4 with Vit 200 K 10 ml Thiamine 100 mg Folic Acid 1 mg In Sodium Chloride 0.9% 1,000 ml @ 100 mls/hr IV .BY DURATION [facility] Rx#: [id number] Potassium Chloride 40 meq 750 In Dextrose 5% in Water 1,000 ml @ 125 mls/hr IV .BY DURATION [facility] Rx#: [id number] Sodium Chloride 0.9% 1, 1150 000 ml @ 100 mls/hr IV . BY DURATION [facility] Rx#: [id number] Other: Voiding Method Toilet Toilet # Voids 1 1 - Exam General: non toxic, no distress, appears at stated age Derm: warm, dry Mouth: no lip lesion, mucus membranes moist Cardiovascular: S1S2 reg, no murmur, positive posterior tibial pulse bilateral, Lungs: CTA bilateral, no rhonchi, no rales , no accessory muscle use Abdominal: soft, nontender to palpation epigastric, no guarding, no appreciable organomegaly Ext: no gross muscle atrophy, no edema, no contractures Neuro: CN II-XI grossly intact, no focal neuro deficits Psych: Alert, oriented, appropriate affect - Labs CBC & Chem 7: 09/18/19 06:09 09/20/19 07:12 Assessment and Plan Assessment: Probable starvation ketosis associated with profound secondary to hyperemesis gravidarum - Improving with glucose containing fluid and bananna bag - Advance diet as tolerated - Oral phenergan - Steroids transitioned to oral, considering prolonged herb until seen by primary OB. - GI recs HTN - Suspect this is related to persistent N/V as normotensive on admission but has been started on oral labetaolol, no indication for IV medications at this point in time directed as BP management. - improving and normal, labetalol decreased to 100 BID on 09/21/2019 Elevated lipase - suspect secondary to persistent vomiting - Abd US without signs of pancreatitis - supportive care Cholelithiasis - outpatient evaluation - low fat diet once tolerating hypokalemia, resolved Patient anticipating discharge in AM if symptoms controlled and tolerating diet from her discussion with territory manager general sales.
--- NOTE | 2019-09-21 20:14 | PN ---
PROGRESS NOTE DATE OF DICTATION: 09/21/2019 This patient is a 39-year-old pleasant white female admitted to the hospital with hyperemesis gravidarum for the last 3 days. Remains on methylprednisolone 16 mg q.8 hours, day number 3. She is doing much better. Nausea has improved. No further episodes of emesis. Trying to consume Ensure and some soft diet. Overall she feels better. She denies any abdominal pain. PHYSICAL EXAMINATION: Appears comfortable. No apparent distress. Vital signs are stable. Blood pressure is 133/72, pulse rate 74, temperature 98.5. HEENT examination unremarkable. Conjunctivae pink. Sclerae anicteric. Oral cavity no lesions. NECK: No JVD or lymph node enlargement. CHEST: Clear to auscultation. HEART: Regular rate and rhythm. ABDOMEN: Soft. Bowel sounds are positive. No organomegaly. EXTREMITIES: No pedal edema. SKIN: No rashes. NEUROLOGIC: Alert and oriented x3. No focal deficits. LABS: No labs from today. IMPRESSION: 1. Hyperemesis gravidarum. Patient doing much better on IV methylprednisolone 16 mg q.8 hours, and her symptoms have significantly improved. Still has some nausea. 2. Nine weeks of . RECOMMENDATIONS: 1. Continue with current plan as per her [employer] recommendations. 2. Zofran as needed. 3. Protonix 40 mg daily. 4. Advance diet as tolerated and recommended small frequent meals. 5. Will follow with you closely. Thank you for this consultation. MMODL / IJN: [id number] /
[2019-09-21] MEDS: methylPREDNISolone 4 MG TAB PO SCH (20:48)
[2019-09-21] MEDS: ONDANSETRON 4 MG/2 ML VIAL IVP PRN (20:49)
[2019-09-22] MEDS: methylPREDNISolone 4 MG TAB PO SCH ×2 (04:54→13:15)
[2019-09-22 06:04] VITALS: BP 112/58; PULSE 77; TEMP 98.2
[2019-09-22 07:33] LABS: ALT 22 U/L (4-34); AST 21 U/L (14-36); African American GFR (CKD) >90 (>60 ml/min/1.73 sqM); Alkaline Phosphatase 42 U/L (38-126); Anion Gap 5 mmol/L; Blood Urea Nitrogen 4 mg/dL (7-17); Calcium 8.6 mg/dL (8.4-10.2); Carbon Dioxide 25 mmol/L (22-30); Chloride 103 mmol/L (98-107); Glucose 101 mg/dL (74-99); Non-African American GFR(CKD) >90 (>60 ml/min/1.73 sqM); Potassium 3.5 mmol/L (3.5-5.1); Sodium 133 mmol/L (137-145); Total Bilirubin 0.2 mg/dL (0.2-1.3); Total Protein 5.7 g/dL (6.3-8.2)
[2019-09-22] MEDS: LABETALOL 100 MG TAB PO SCH (08:24)
[2019-09-22] MEDS: ONDANSETRON 4 MG/2 ML VIAL IVP PRN (08:24)
[2019-09-22] MEDS: FAMOTIDINE 20 MG TAB PO SCH (08:24)
[2019-09-22] MEDS: PYRIDOXINE 100 MG/ML 1 ML VIAL IVP SCH (08:24)
--- NOTE | 2019-09-22 13:08 | P.DS ---
Providers Date of admission: 09/17/19 13:58 Expected date of discharge: 09/22/19 Attending physician: Cora Crystal Consults: 09/17/19 11:51 Consult Physician Urgent Consulting Provider: Diane Pizarro Consult Reason/Comments: hyperemesis Do you want consulting provider notified?: Yes 09/17/19 23:39 Consult Physician Routine Consulting Provider: Brenda Hernandez Consult Reason/Comments: HTN Do you want consulting provider notified?: Already Contacted Primary care physician: Stated None - Discharge Diagnosis(es) (1) Hyperemesis gravidarum before end of 22 week gestation with electrolyte imbalance Current Visit: Yes Status: Acute Hospital Course: This is a 39-year-old female 4 para 3 at approximately 9-1/2 weeks who presented with severe nausea and vomiting and dehydration. She was given IV fluids along with Zofran. Her symptoms did not improve and therefore she was started on oral steroids and switched to initially Reglan and then Phenergan. She has gone back to the occasional Zofran. The steroids dramatically improved her symptoms and she has been tolerating a soft diet. She is no longer vomiting or gagging. Abdominal ultrasound did show some sludge in the gallbladder. Both GI and medicine consulted. She was started on a low-dose of labetalol for elevated blood pressures that have come down. She is in good spirits today and would like to go home. She does have an appointment with her OB scheduled next week. Patient Condition at Discharge: Fair Plan - Discharge Summary Discharge Rx Participant: Yes New Discharge Prescriptions: New methylPREDNISolone [Medrol] 4 mg PO Q8H 9 Days #54 tab Ondansetron Odt [Zofran Odt] 4 mg PO Q8HR PRN #30 tab PRN Reason: Nausea Continue Vitamin B6 <Unknown Dose. 1 tab PO TID No Action Doxylamine Succinate [Unisom] 12.5 mg PO BID Discharge Medication List Doxylamine Succinate [Unisom] 12.5 mg PO BID 09/16/19 [History] Vitamin B6 <Unknown Dose. 1 tab PO TID 09/16/19 [History] Ondansetron Odt [Zofran Odt] 4 mg PO Q8HR PRN #30 tab 09/22/19 [Rx] methylPREDNISolone [Medrol] 4 mg PO Q8H 9 Days #54 tab 09/22/19 [Rx] Follow up Appointment(s)/Referral(s): None,Stated [Primary Care Provider] - 1-2 days Patient Instructions/Handouts: Hyperemesis Gravidarum (DC) Activity/Diet/Wound Care/Special Instructions: Activity as tolerated. Diet as tolerated. Discharge Disposition: HOME SELF-CARE
--- NOTE | 2019-09-22 14:30 | P.PN ---
Subjective Progress Note Date: 09/22/19 Principal diagnosis: Hypertension Patient states that she had bypass she denies any nausea or vomiting at the time of my evaluation states she was alleviated excited to go home seen this a.m Patient 39-year-old female 9 weeks gestational was hospitalized since 50 secondary to persistent nausea and vomiting. Patient was initially normotensive she failed B12, escalating dose of Zofran she was seen initially by our service secondary to elevated blood pressure patient was started on labetalol on thiamine injections. On 412 patient showed worsening hypokalemia she was given IV replacement, she was also noted to have an acidosis with a carbon dioxide of 15 on urinalysis showed 4+ ketones. Patient also had elevated lipase of 705 concern for pancreatitis. Patient had antiemetics adjusted she was given lytic couch for Reglan she was then switched to Phenergan she was also started on steroids after discussion with OB/9. Patient was seen service yesterday she was having improved nausea and vomiting on today she continues to report that her nausea and vomiting has resolved. Objective - Vital Signs Vital signs: Vital Signs Temp 98.2 F 09/22/19 05:00 Pulse 77 09/22/19 05:00 Resp 18 09/22/19 05:00 BP 112/58 09/22/19 05:00 Pulse Ox 97 09/22/19 05:00 Intake & Output 09/21/19 09/22/19 09/22/19 18:59 06:59 18:59 Intake Total 950 775 Balance 950 775 Weight 71.214 kg Intake: Intake, IV Titration 950 775 Amount Mvi, Adult No.4 with Vit 200 K 10 ml Thiamine 100 mg Folic Acid 1 mg In Sodium Chloride 0.9% 1,000 ml @ 100 mls/hr IV .BY DURATION [facility] Rx#: [id number] Potassium Chloride 40 meq 750 375 In Dextrose 5% in Water 1,000 ml @ 125 mls/hr IV .BY DURATION [facility] Rx#: [id number] Sodium Chloride 0.9% 1, 400 000 ml @ 100 mls/hr IV . BY DURATION [facility] Rx#: [id number] Other: Voiding Method Toilet Toilet Toilet # Voids 1 - Constitutional General appearance: Present: average body habitus - Respiratory Respiratory: bilateral: CTA - Cardiovascular Rhythm: regular - Gastrointestinal General gastrointestinal: Present: normal bowel sounds - Labs CBC & Chem 7: 04/12/20 06:09 09/22/19 05:58 Labs: Abnormal Lab Results - Last 24 Hours (Table) 09/22/19 Range/Units 05:58 Sodium 133 L (137-145) mmol/L BUN 4 L (7-17) mg/dL Creatinine 0.45 L (0.52-1.04) mg/dL Glucose 101 H (74-99) mg/dL Total Protein 5.7 L (6.3-8.2) g/dL Albumin 3.0 L (3.5-5.0) g/dL Assessment and Plan (1) Hyperemesis Narrative/Plan: Improved plan to discharge for primary service Current Visit: Yes Status: Acute Code(s): R11.10 - VOMITING, UNSPECIFIED SNOMED Code(s): 267522161 (2) HTN (hypertension) Narrative/Plan: She was normotensive and doesn't have a history of hypertension and vital signs reviewed today showed that she was normotensive on labetalol, clinically feel that her hypertension was exacerbated by her symptoms of nausea and vomiting as her home ANTIHYPERTENSIVES and have her follow-up with her family physician. Patient already has a scheduled appointment Current Visit: Yes Status: Acute Code(s): I10 - ESSENTIAL (PRIMARY) HYPERTENSION SNOMED Code(s): 30307763
--- NOTE | 2019-09-22 16:05 | PN ---
PROGRESS NOTE DATE OF DICTATION: 09/22/2019 Patient is a 39-year-old pleasant white female who is presently 10 weeks , admitted to hospital with hyperemesis gravidarum. She was started on IV Solu-Medrol 60 mg q.[address] Crystal 3 days ago and her symptoms are significantly improved. She still has some nausea but no emesis. She is able to tolerate soft diet reasonably well. Still has decreased oral intake. She reports no abdominal pain. PHYSICAL EXAMINATION: Appears comfortable, in no apparent distress. Vital signs are stable, blood pressure 133/86, pulse rate 92 per minute and afebrile. HEENT: Examination unremarkable, conjunctivae are pink, sclerae nonicteric, oral cavity no lesions. NECK: No JVD or lymph node enlargement. CHEST: Clear to auscultation. HEART: Regular rate and rhythm. ABDOMEN: Soft. Bowel sounds are positive. No organomegaly. EXTREMITIES: No pedal edema. SKIN: No rashes. NEUROLOGIC: Alert and oriented x3. No focal deficits. LABS: Done today, basic metabolic panel is within normal limits. IMPRESSION: 1. Hyperemesis gravidarum/week 10 of , on IV Solu-Medrol 60 mg q.8 hours started 3 days ago. She is doing much better. Symptoms have almost resolved. Still has some persistent nausea, on Zofran as needed. 2. Asymptomatic gallstones. RECOMMENDATION: 1. Encourage small frequent meals. 2. Avoid greasy foods. 3. Continue with Protonix 40 mg daily. 4. Wean prednisone as per Dr. Crystal's recommendation. 5. Patient can be discharged home today with outpatient followup as needed. Thank you for this consultation. MMODL / IJN: [id number] /
== END 2019-09-22 15:29 | disposition home or self-care (01) | DRG 832 ==
LOC: EC 18:30 → 6PED 21:10 → 6NMEDSUR 21:51 → OBSVTOIN 09-17 13:58 → 5NMEDONC 09-20 15:41
PROVIDERS: ADMIT Obstetrics & Gynecology; ATTEND Obstetrics & Gynecology
DX: O21.1 Hyperemesis gravidarum with metabolic disturbance (principal); O16.2 Unspecified maternal hypertension, second trimester; O26.612 Liver and biliary tract disorders in pregnancy, second trimester; O09.522 Supervision of elderly multigravida, second trimester; K80.20 Calculus of gallbladder without cholecystitis without obstruction; O99.282 Endocrine, nutritional and metabolic diseases complicating pregnancy, second trimester; Z3A.22 22 weeks gestation of pregnancy; E86.0 Dehydration
CPT/HCPCS: 36415; 76705; 80048; 80051; 80053; 81001; 82150; 82330; 83605; 83690; 83735; 84100; 84439; 84443; 84702; 85025; 93005; 96361; 96374; 96375; 99284